=== PATIENT | female | born 1945 | race Caucasian/White ===

== ENCOUNTER → 2020-01-17 | Outpatient (CLI) | payer MEDICARE, BC ==
[~2020-01-17] MED LIST: APIX2.5T PO; CEFD300C37 PO; DULO30CA2 PO; GABA600T7 PO; MORP-59 PO; PHEN100T90 PO; PREG100C PO
[2020-01-17 10:01] LABS: MICROSCOPIC AUTO
[2020-01-17 10:10] LABS: CALCIUM 8.9 mg/dL (8.5-10.1); CREATININE 0.84 mg/dL (0.55-1.02)
[2020-01-17 10:12] LABS: BASOPHILS # (AUTO) 0.02 x10^3/uL (0-0.1); BASOPHILS % (AUTO) 1 % (0-1); EOSINOPHILS # (AUTO) 0.17 x10^3/uL (0-0.4); EOSINOPHILS % (AUTO) 4 % (1-7); LYMPHOCYTES # (AUTO) 1.21 x10^3/uL (1-3.4); LYMPHOCYTES % (AUTO) 29 % (22-44); MD NO; MEAN CORPUSCULAR HEMOGLOBIN 29.6 pg (27.0-34.8); MEAN CORPUSCULAR VOLUME 89.8 fL (80-100); MEAN PLATELET VOLUME 9.8 fL (7.4-10.4); MONOCYTES # (AUTO) 0.37 x10^3/uL (0.2-0.8); MONOCYTES % (AUTO) 9 % (2-9); NEUTROPHILS # (AUTO) 2.39 x10^3/uL (1.8-6.8); NEUTROPHILS % (AUTO) 58 % (42-75); PLATELET COUNT 160 x10^3/uL (130-400); RED BLOOD COUNT 4.97 x10^6/uL (3.82-5.3); RED CELL DISTRIBUTION WIDTH 13.9 % (9.6-15.2)
[2020-01-17 10:22] LABS: CULTURE INDICATED? YES
[2020-01-17 10:29] LABS: ANION GAP 7 mmol/L (5-15); CHLORIDE 105 mmol/L (98-107)
== END | disposition home or self-care (01) ==
LOC: STAR 08:15
PROVIDERS: ATTEND Orthopaedic Surgery
DX: Z01.810 Encounter for preprocedural cardiovascular examination (principal); M17.9 Osteoarthritis of knee, unspecified; M25.561 Pain in right knee; G57.70 Causalgia of unspecified lower limb; M79.673 Pain in unspecified foot; M72.2 Plantar fascial fibromatosis
CPT/HCPCS: 36415; 80048; 81001; 85025; 87081; 87086; 87147; 93005; U0001

== ENCOUNTER 2020-01-22 05:42 | Observation (INO) | payer MEDICARE, BC ==
[~2020-01-22] VITALS: Ht 160 cm; Wt 58.0 kg
[2020-01-22] MEDS ORDERED: LACTATED RINGERS 1,000 ML IV SCH (06:08)
[2020-01-22] MEDS ORDERED: CHLORHEXIDINE 15 ML UDC ONE (06:18)
[2020-01-22] MEDS ORDERED: TRANEXAMIC ACID 100 MG/ML, 10ML ONE ×2 (06:26)
[2020-01-22] MEDS ORDERED: KETOROLAC 60 MG/2 ML ONE (06:26)
[2020-01-22] MEDS ORDERED: ROPIvacaine/PF 0.2%, 20 ML ONE (06:27)
[2020-01-22] MEDS ORDERED: SODIUM CHLORIDE 0.9% 50 ML ONE (06:27)
[2020-01-22] MEDS ORDERED: EPINEPHRINE 1 MG/ML, 1ML ONE (06:27)
[2020-01-22] MEDS ORDERED: VANCOMYCIN 1,000 MG ONE (06:27)
[2020-01-22] MEDS ORDERED: FENTANYL PF 250 MCG/5ML ONE (06:36)
[2020-01-22] MEDS ORDERED: MIDAZOLAM 1 MG/ML, 2ML ONE (06:38)
[2020-01-22] MEDS ORDERED: GABAPENTIN 300 MG CAPSULE ONE (06:42)
[2020-01-22] MEDS ORDERED: ACETAMINOPHEN 500 MG TABLET ONE (06:42)
[2020-01-22] MEDS ORDERED: hydrALAzine 20 MG/ML, 1ML ONE (07:18)
[2020-01-22 07:30] LABS: MICROSCOPIC AUTO
[2020-01-22] MEDS ORDERED: ALBUTEROL SULFATE 2.5 MG/3 ML NPPB PRN (08:00)
[2020-01-22] MEDS ORDERED: PROMETHAZINE 25 MG/ML, 1ML IV PRN (08:00)
[2020-01-22] MEDS ORDERED: hydrALAzine 20 MG/ML, 1ML IV PRN (08:00)
[2020-01-22] MEDS ORDERED: FENTANYL PF 100 MCG/2ML IV PRN (08:00)
[2020-01-22] MEDS ORDERED: LABETALOL 5MG/ML, 20ML IV PRN (08:00)
[2020-01-22] MEDS ORDERED: OXYcodone 5 MG/5 ML ORAL.SOL UDC PO PRN (08:00)
[2020-01-22] MEDS ORDERED: PROPOFOL 10 MG/ML, 20ML ONE (08:27)
[2020-01-22] MEDS ORDERED: ROCURONIUM 10MG/ML,5ML ONE (08:27)
[2020-01-22] MEDS ORDERED: NEOSTIGMINE 1 MG/ML, 10ML ONE (08:27)
[2020-01-22] MEDS ORDERED: DEXAMETHASONE 4 MG/ML, 1ML ONE (08:27)
[2020-01-22] MEDS ORDERED: GLYCOPYRROLATE 0.2MG/1ML, 5ML ONE (08:27)
[2020-01-22] MEDS ORDERED: SUCCINYLCHOLINE 20 MG/ML, 10ML ONE (08:27)
[2020-01-22] MEDS ORDERED: ONDANSETRON 2MG/ML, 2ML ONE (08:27)
[2020-01-22] MEDS ORDERED: CEFAZOLIN 1,000 MG ONE (08:27)
[2020-01-22] MEDS: HYDROmorphone 2 MG/ML, 1ML IVPush PRN ×3 (08:56→09:22)
[2020-01-22] MEDS ORDERED: OXYcodone 5 MG/5 ML ORAL.SOL UDC ONE (08:58)
[2020-01-22] MEDS ORDERED: HYDROmorphone 1 MG/ML, 1ML INJ ONE (08:58)
[2020-01-22] MEDS ORDERED: MAGNESIUM HYDROXIDE 8%, 30ML UDC PO PRN (09:00)
[2020-01-22] MEDS: PREGABALIN 100 MG CAPSULE PO SCH ×3 (09:00→21:07)
[2020-01-22] MEDS ORDERED: BISACODYL 10 MG SUPP PR PRN (09:00)
[2020-01-22] MEDS ORDERED: OXYcodone IR 5MG TABLET PO PRN (09:00)
[2020-01-22] MEDS ORDERED: DIAZEPAM 5 MG TABLET PO PRN (09:00)
[2020-01-22] MEDS: GABAPENTIN 300 MG CAPSULE PO SCH ×3 (09:00→21:07)
[2020-01-22] MEDS ORDERED: PROMETHAZINE 12.5 MG SUPP PR PRN (09:00)
[2020-01-22] MEDS ORDERED: ONDANSETRON 4 MG TABLET PO PRN (09:00)
[2020-01-22] MEDS ORDERED: ZOLPIDEM 5MG TABLET PO PRN (09:00)
[2020-01-22] MEDS: DULOXETINE 30 MG CAPSULE.DR PO SCH (09:00)
[2020-01-22] MEDS ORDERED: SENNA/DOCUSATE TABLET PO PRN (09:00)
[2020-01-22] MEDS ORDERED: ALUMINUM/MAG/SIMETHICONE 30 ML UDC PO PRN (09:00)
[2020-01-22] MEDS ORDERED: DIPHENHYDRAMINE 50 MG CAPSULE PO PRN (09:00)
[2020-01-22] MEDS ORDERED: POLYETHYLENE GLYCOL 17 GM PACKET PO PRN (09:00)
[2020-01-22] MEDS ORDERED: PSYLLIUM PACKET PO PRN (09:00)
[2020-01-22] MEDS ORDERED: PROMETHAZINE 25 MG/ML, 1ML IM PRN (09:00)
[2020-01-22] MEDS ORDERED: HYDROmorphone 1 MG/ML, 1ML INJ IVPush PRN (09:00)
[2020-01-22] MEDS ORDERED: ONDANSETRON 2MG/ML, 2ML IV PRN (09:00)
[2020-01-22] MEDS ORDERED: TRANEXAMIC ACID 1,000 MG in SODIUM CHLORIDE 0.9% 100 ML IVPB ONE (09:15)
[2020-01-22] MEDS ORDERED: DIAZEPAM 5 MG/ML, 2ML ONE (09:29)
[2020-01-22] MEDS ORDERED: DIAZEPAM 5 MG/ML, 2ML IV ONE (09:30)
[2020-01-22] MEDS: ACETAMINOPHEN 500 MG TABLET PO SCH ×3 (10:30→23:03)
[2020-01-22] MEDS: MULTIVITAMINS/MINERALS TABLET PO SCH (11:00)
[2020-01-22] MEDS: ASCORBIC ACID 500 MG TABLET PO SCH (11:00)
[2020-01-22] MEDS: FERROUS SULFATE 325 MG TABLET PO SCH ×2 (11:00→17:03)
[2020-01-22] MEDS: DOCUSATE 100 MG CAPSULE PO SCH ×2 (11:01→21:08)
[2020-01-22] MEDS: CALCIUM/VITAMIN D3 250-125 TABLET PO SCH ×2 (11:02→17:03)
[2020-01-22] MEDS: D5%-0.45% NACL 1,000 ML IV SCH ×2 (11:05→22:13)
[2020-01-22 13:02] VITALS: BP 105/54
[2020-01-22] MEDS: KETOROLAC 30 MG/1 ML IV SCH ×2 (15:22→23:02)
[2020-01-22] MEDS: CEFAZOLIN PMX 1GM/50ML 50 ML IVPB SCH ×2 (15:23→23:02)
[2020-01-22 19:32] VITALS: BP 93/52
[2020-01-22] MEDS: MORPHABOND HOMEMEDPO SCH (20:20)
[2020-01-22 23:15] VITALS: BP 97/59
[2020-01-23 03:17] VITALS: BP 92/54
[2020-01-23] MEDS: ACETAMINOPHEN 500 MG TABLET PO SCH ×2 (05:31→10:57)
[2020-01-23 05:58] LABS: CREATININE 0.99 mg/dL (0.55-1.02)
[2020-01-23] MEDS ORDERED: APIXABAN 2.5 MG TABLET PO SCH ×2 (06:00)
[2020-01-23] MEDS ORDERED: DEXAMETHASONE 4 MG/ML, 1ML IVPush SCH (06:00)
[2020-01-23 07:06] VITALS: BP 89/48
[2020-01-23] MEDS: CALCIUM/VITAMIN D3 250-125 TABLET PO SCH ×2 (08:00→10:57)
[2020-01-23] MEDS: DULOXETINE 30 MG CAPSULE.DR PO SCH (08:13)
[2020-01-23] MEDS: ASCORBIC ACID 500 MG TABLET PO SCH (08:14)
[2020-01-23] MEDS: MULTIVITAMINS/MINERALS TABLET PO SCH (08:14)
[2020-01-23] MEDS: MORPHABOND HOMEMEDPO SCH ×2 (08:14→12:53)
[2020-01-23] MEDS: DOCUSATE 100 MG CAPSULE PO SCH (08:14)
[2020-01-23] MEDS: GABAPENTIN 300 MG CAPSULE PO SCH ×2 (08:14→12:53)
[2020-01-23] MEDS: PREGABALIN 100 MG CAPSULE PO SCH ×2 (08:14→12:53)
[2020-01-23] MEDS: FERROUS SULFATE 325 MG TABLET PO SCH (08:14)
[2020-01-23] MEDS: D5%-0.45% NACL 1,000 ML IV SCH (10:53)
[2020-01-23 12:39] VITALS: BP 98/55
== END 2020-01-23 13:05 | disposition home or self-care (01) ==
LOC: OR 05:42 → ORIP 09:27 → 4NE 10:16
PROVIDERS: ADMIT Orthopaedic Surgery; ATTEND Orthopaedic Surgery
DX: M17.11 Unilateral primary osteoarthritis, right knee (principal); M24.20 Disorder of ligament, unspecified site; M21.061 Valgus deformity, not elsewhere classified, right knee; G60.9 Hereditary and idiopathic neuropathy, unspecified; Z79.01 Long term (current) use of anticoagulants; Z79.899 Other long term (current) drug therapy
CPT/HCPCS: 27447; 36415; 73560; 81001; 82565; 85014; 85018; 87086; 96365; 96366; 96375; 96376; 97110; 97161; 97165; 97530; C1713; C1776; G0378; J0171; J0330; J0360; J0690; J1100; J1170; J1885; J2250; J2405; J2704; J2795; J3010; J3360; J7120; J2710; J3370

== ENCOUNTER → 2020-06-19 | Outpatient (CLI) | payer MEDICARE, BC ==
[2020-06-19 12:23] LABS: BASOPHILS % (AUTO) 1 % (0-1); EOSINOPHILS % (AUTO) 1 % (1-7); LYMPHOCYTES % (AUTO) 22 % (22-44); MEAN CORPUSCULAR HEMOGLOBIN 28.7 pg (27.0-34.8); MEAN CORPUSCULAR HGB CONC 32.9 g/dL (32.4-35.8); MEAN PLATELET VOLUME 9.5 fL (7.4-10.4); MONOCYTES % (AUTO) 10 % (2-9); NEUTROPHILS % (AUTO) 66 % (42-75); PLATELET COUNT 158 x10^3/uL (130-400); RED BLOOD COUNT 4.81 x10^6/uL (3.82-5.3); RED CELL DISTRIBUTION WIDTH 15.2 % (9.6-15.2)
[2020-06-19 12:25] LABS: MD NO
[2020-06-19 12:33] LABS: CALCIUM 9.6 mg/dL (8.5-10.1); CHLORIDE 108 mmol/L (98-107); CREATININE 0.87 mg/dL (0.55-1.02)
[2020-06-19 12:39] LABS: ANION GAP 3 mmol/L (5-15)
== END | disposition home or self-care (01) ==
LOC: STAR 11:06
PROVIDERS: ATTEND Orthopaedic Surgery
DX: Z01.818 Encounter for other preprocedural examination (principal); M17.12 Unilateral primary osteoarthritis, left knee
CPT/HCPCS: 36415; 80048; 85025; 87081; 87147; 93005

== ENCOUNTER → 2020-06-27 | Outpatient (CLI) | payer MEDICARE, BC | END | disposition home or self-care (01) | LOC: STAR 11:52 | PROVIDERS: ATTEND Orthopaedic Surgery | DX: Z20.828 Contact with and (suspected) exposure to other viral communicable diseases (principal) | CPT/HCPCS: 36415; 87635 ==

== ENCOUNTER 2020-07-01 06:15 | Observation (INO) | payer MEDICARE, BC ==
[~2020-07-01] VITALS: Ht 161.3 cm; Wt 55.2 kg
[2020-07-01] MEDS ORDERED: KETOROLAC 60 MG/2 ML ONE (06:18)
[2020-07-01] MEDS ORDERED: ROPIvacaine/PF 0.2%, 20 ML ONE (06:18)
[2020-07-01] MEDS ORDERED: TRANEXAMIC ACID 100 MG/ML, 10ML ONE (06:18)
[2020-07-01] MEDS ORDERED: VANCOMYCIN 1,000 MG ONE (06:18)
[2020-07-01] MEDS ORDERED: SODIUM CHLORIDE 0.9% 50 ML ONE (06:18)
[2020-07-01] MEDS ORDERED: EPINEPHRINE 1 MG/ML, 1ML ONE (06:18)
[2020-07-01] MEDS ORDERED: CHLORHEXIDINE 15 ML UDC MM STA (07:01)
[2020-07-01] MEDS ORDERED: LACTATED RINGERS 1,000 ML IV SCH (07:30)
[2020-07-01] MEDS ORDERED: METOPROLOL 1 MG/ML, 5ML ONE (08:06)
[2020-07-01] MEDS ORDERED: GABAPENTIN 300 MG CAPSULE ONE (08:18)
[2020-07-01] MEDS ORDERED: ACETAMINOPHEN 500 MG TABLET ONE (08:18)
[2020-07-01] MEDS ORDERED: MIDAZOLAM 1 MG/ML, 2ML ONE (08:26)
[2020-07-01] MEDS ORDERED: FENTANYL PF 250 MCG/5ML ONE (08:29)
[2020-07-01] MEDS ORDERED: FENTANYL PF 100 MCG/2ML ONE ×2 (09:25→10:55)
[2020-07-01] MEDS ORDERED: PROPOFOL 10 MG/ML, 20ML ONE (09:25)
[2020-07-01] MEDS ORDERED: DEXAMETHASONE 4 MG/ML, 1ML ONE (09:25)
[2020-07-01] MEDS ORDERED: CEFAZOLIN 1,000 MG ONE (09:25)
[2020-07-01] MEDS ORDERED: GLYCOPYRROLATE 0.2MG/1ML, 5ML ONE (09:25)
[2020-07-01] MEDS ORDERED: ROCURONIUM 10MG/ML,5ML ONE (09:25)
[2020-07-01] MEDS ORDERED: ONDANSETRON 2MG/ML, 2ML ONE (09:25)
[2020-07-01] MEDS ORDERED: NEOSTIGMINE 1 MG/ML, 10ML ONE (09:25)
[2020-07-01] MEDS ORDERED: SUCCINYLCHOLINE 20 MG/ML, 10ML ONE (09:25)
[2020-07-01] MEDS ORDERED: PROMETHAZINE 25 MG/ML, 1ML IV PRN (09:30)
[2020-07-01] MEDS ORDERED: MEPERIDINE/PF 25MG/0.5ML IVPush PRN (09:30)
[2020-07-01] MEDS ORDERED: DIAZEPAM 5 MG/ML, 2ML IVPush PRN (09:30)
[2020-07-01] MEDS ORDERED: LABETALOL 5MG/ML, 20ML IV PRN (09:30)
[2020-07-01] MEDS ORDERED: ALBUTEROL SULFATE 2.5 MG/3 ML NPPB PRN (09:30)
[2020-07-01] MEDS ORDERED: ACETAMINOPHEN 325 MG TABLET PO PRN (09:30)
[2020-07-01] MEDS ORDERED: KETOROLAC 30 MG/1 ML IV PRN (09:30)
[2020-07-01] MEDS ORDERED: hydrALAzine 20 MG/ML, 1ML IV PRN (09:30)
[2020-07-01] MEDS ORDERED: PROMETHAZINE 25 MG/ML, 1ML IM PRN (10:30)
[2020-07-01] MEDS ORDERED: SODIUM CHLORIDE 0.9% 1,000 ML IV SCH (10:30)
[2020-07-01] MEDS ORDERED: BISACODYL 10 MG SUPP PR PRN (10:30)
[2020-07-01] MEDS ORDERED: TRANEXAMIC ACID 1,000 MG in SODIUM CHLORIDE 0.9% 100 ML IVPB ONE (10:30)
[2020-07-01] MEDS ORDERED: HYDROmorphone 1 MG/ML, 1ML INJ IVPush PRN (10:30)
[2020-07-01] MEDS ORDERED: MAGNESIUM HYDROXIDE 8%, 30ML UDC PO PRN (10:30)
[2020-07-01] MEDS ORDERED: DIPHENHYDRAMINE 50 MG/ML, 1ML IVPush PRN (10:30)
[2020-07-01] MEDS ORDERED: ALUMINUM/MAG/SIMETHICONE 30 ML UDC PO PRN (10:30)
[2020-07-01] MEDS ORDERED: METHOCARBAMOL 1,000 MG in DEXTROSE 5% 100 ML IV ONE (10:30)
[2020-07-01] MEDS ORDERED: DIPHENHYDRAMINE 50 MG CAPSULE PO PRN (10:30)
[2020-07-01] MEDS ORDERED: PSYLLIUM PACKET PO PRN (10:30)
[2020-07-01] MEDS ORDERED: DIAZEPAM 5 MG TABLET PO PRN (10:30)
[2020-07-01] MEDS ORDERED: SENNA/DOCUSATE TABLET PO PRN (10:30)
[2020-07-01] MEDS ORDERED: POLYETHYLENE GLYCOL 17 GM PACKET PO PRN (10:30)
[2020-07-01] MEDS ORDERED: OXYcodone IR 5MG TABLET PO PRN ×2 (10:30)
[2020-07-01] MEDS ORDERED: ONDANSETRON 2MG/ML, 2ML IVPush PRN (10:30)
[2020-07-01] MEDS ORDERED: ONDANSETRON 4 MG TABLET PO PRN (10:30)
[2020-07-01] MEDS ORDERED: PROMETHAZINE 12.5 MG SUPP PR PRN (10:30)
[2020-07-01] MEDS: FENTANYL PF 100 MCG/2ML IV PRN ×3 (10:50→11:15)
[2020-07-01] MEDS ORDERED: OXYcodone 5 MG/5 ML ORAL.SOL UDC ONE ×2 (10:55→11:58)
[2020-07-01] MEDS: OXYcodone 5 MG/5 ML ORAL.SOL UDC PO PRN ×2 (11:00→12:00)
[2020-07-01] MEDS ORDERED: HYDROmorphone 1 MG/ML, 1ML INJ ONE (11:27)
[2020-07-01] MEDS: HYDROmorphone 2 MG/ML, 1ML IVPush PRN ×2 (11:30→12:00)
[2020-07-01 13:15] VITALS: BP 131/65
[2020-07-01] MEDS: ACETAMINOPHEN 500 MG TABLET PO SCH ×2 (13:35→16:38)
[2020-07-01] MEDS ORDERED: TAMSULOSIN 0.4 MG CAP.ER.24H PO ONE (14:00)
[2020-07-01 14:21] VITALS: BP 138/77
[2020-07-01] MEDS ORDERED: KETOROLAC 30 MG/1 ML IV SCH ×2 (14:30→17:00)
[2020-07-01] MEDS ORDERED: PREGABALIN 100 MG CAPSULE PO SCH (16:00)
[2020-07-01] MEDS ORDERED: GABAPENTIN 300 MG CAPSULE PO SCH (16:00)
[2020-07-01 17:05] VITALS: BP 120/76
[2020-07-01] MEDS ORDERED: CEFAZOLIN PMX 1GM/50ML 50 ML IVPB SCH (17:30)
[2020-07-01] MEDS ORDERED: DOCUSATE 100 MG CAPSULE PO SCH (21:00)
[2020-07-02] MEDS ORDERED: DEXAMETHASONE 4 MG/ML, 1ML IVPush SCH (06:00)
[2020-07-02] MEDS ORDERED: DULOXETINE 30 MG CAPSULE.DR PO SCH (09:00)
[2020-07-02] MEDS ORDERED: APIXABAN 2.5 MG TABLET PO SCH (09:00)
== END 2020-07-01 17:45 | disposition home or self-care (01) ==
LOC: OUT 06:15 → 3WST 10:19
PROVIDERS: ADMIT Orthopaedic Surgery; ATTEND Orthopaedic Surgery
DX: M17.12 Unilateral primary osteoarthritis, left knee (principal); M81.0 Age-related osteoporosis without current pathological fracture; M06.9 Rheumatoid arthritis, unspecified; G47.30 Sleep apnea, unspecified; G60.9 Hereditary and idiopathic neuropathy, unspecified; Z86.718 Personal history of other venous thrombosis and embolism; Z79.899 Other long term (current) drug therapy; Z79.82 Long term (current) use of aspirin; Z79.01 Long term (current) use of anticoagulants; Z96.652 Presence of left artificial knee joint
CPT/HCPCS: 27447; 73560; 96361; 96374; 97161; C1713; C1776; G0378; J0171; J0330; J0690; J1100; J1170; J1885; J2250; J2405; J2704; J2710; J2795; J2800; J3010; J7030; J7120; J3370

== ENCOUNTER 2020-07-05 15:46 | Emergency (ER) | payer MEDICARE, BC ==
[~2020-07-05] VITALS: Ht 160 cm; Wt 58.7 kg
[2020-07-05 15:59] VITALS: BP 129/37
--- NOTE | 2020-07-05 17:10 | NUR ---
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
== END 2020-07-05 18:11 | disposition home or self-care (01) ==
LOC: ED 16:30
DX: S80.02XA Contusion of left knee, initial encounter (principal); M79.89 Other specified soft tissue disorders; X58.XXXA Exposure to other specified factors, initial encounter; Y93.89 Activity, other specified; Y92.89 Other specified places as the place of occurrence of the external cause; Y99.8 Other external cause status
CPT/HCPCS: 99284